=== PATIENT | male | born 1950 | race Caucasian/White ===

== ENCOUNTER 2018-11-15 01:03 | Inpatient (IN) | payer OTHER, BC ==
--- NOTE | 2018-11-15 01:25 | PDOC ---
History of Present Illness - General Stated Complaint: HIGH BP Time Seen by Provider: 11/15/18 01:22 - History of Present Illness Initial Comments: 11/15/18 01:28 68 year old woman with a past medical history of HTN, GERD, DM and HLD who presents with elevated blood pressure to the 150s-180s/90s since 1530 today that did not resolve with hydralazine, carvidilol and benicar and associated with some nonradiating chest "heaviness" and numbness and tingling at the fingertips. The patient denies headache, nausea, changes in vision or hearing. Patient has a history of chronic sinusitis and notes a recent flare up, but denies any other recent illness, no recent travel. Denies shortness of breath, abdominal pain, n/v/d/c dysuria or hematuria. He has no other complaints at bedside. The patient took hydralazine at 1530, benicar at 1630, carvidilol at 1900. The patient takes benicar and carvedilol but does not regularly take hydralazine as it was initially added by PCP due to elevation but caused hypotension , so was discontinued. The patient took the medication today bc his blood pressure was elevated. Patient cannot provide a baseline blood pressure as it is so fluctuant, however he notes that his bp is typically below 150s systolic. He has no other complaitns at bedside. Past History - Past Medical History Allergies/Adverse Reactions: Allergies Allergy/AdvReac Type Severity Reaction Status Date / Time No Known Drug Allergies Allergy Verified 11/15/18 01:30 KIWI FRUIT Allergy Intermediate Rash Uncoded 07/30/13 19:04 Home Medications: Ambulatory Orders Olmesartan Medoxomil [Benicar] 40 mg PO DAILY 06/22/12 Omeprazole/Sodium Bicarbonate [Zegerid 20mg (RX)] 40 mg PO DAILY 07/20/12 Alprazolam [Xanax] 0.5 mg PO HS 07/29/12 Glipizide [Glipizide ER] 5 mg PO DAILY 09/29/12 Atorvastatin Ca [Lipitor] 20 mg PO DAILY 11/23/12 Carvedilol Phosphate [Coreg Cr] 40 mg PO HS 07/25/13 Cholecalciferol (Vitamin D3) [Vitamin D3 -] 1,000 unit PO WEEKLY 07/25/13 hydrALAZINE HCL [Apresoline -] 25 mg PO TID 07/25/13 Anemia: No Asthma: No Cancer: No Cardiac Disorders: No CVA: No COPD: No CHF: No Dementia: No Diabetes: Yes GI Disorders: Yes (gerd) Disorders: Yes (RENAL STONES) HTN: Yes Hypercholesterolemia: Yes Liver Disease: No Seizures: No Thyroid Disease: No - Surgical History Abdominal Surgery: Yes (UMBILICAL HERNIA REPAIR) Appendectomy: No Cardiac Surgery: No Cholecystectomy: No Lung Surgery: No Neurologic Surgery: No Orthopedic Surgery: No - Suicide/Smoking/Psychosocial Hx Smoking Status: No Smoking History: Never smoked Have you smoked in the past 12 months: No Number of Cigarettes Smoked Daily: 0 Hx Alcohol Use: No Drug/Substance Use Hx: No Substance Use Type: None Hx Substance Use Treatment: No *Physical Exam - Physical Exam Comments: 11/15/18 01:55 GENERAL: Awake, alert, and fully oriented, in no acute distress HEAD: No signs of trauma, normocephalic, atraumatic EYES: PERRLA, EOMI, sclera anicteric, conjunctiva clear ENT: oropharynx clear without exudates. Moist mucosa NECK: Normal ROM, supple LUNGS: No distress, speaks full sentences, clear to auscultation bilaterally HEART: Regular rate and rhythm, normal S1 and S2, no murmurs, rubs or gallops, peripheral pulses normal and equal bilaterally. ABDOMEN: Soft, nontender, normoactive bowel sounds. No guarding, no rebound. No masses EXTREMITIES : Normal inspection, Normal range of motion, no edema. No clubbing or cyanosis. NEUROLOGICAL: Cranial nerves II through XII grossly intact. Normal speech, no focal sensorimotor deficits SKIN: Warm, Dry, normal turgor, no rashes or lesions noted ED Treatment Course - LABORATORY CBC & Chemistry Diagram: 11/15/18 01:55 11/15/18 01:55 Medical Decision Making - Medical Decision Making 11/15/18 01:54 68 year old woman with a past medical history of HTN, GERD, DM and HLD who presents with elevated blood pressure to the 150s-180s/90s since 1529 today that did not resolve with hydralazine, carvidilol and benicar and associated with some nonradiating chest "heaviness" and numbness and tingling at the fingertips. ED Course: consider acs vs arrythmia r/o infectious causes pna vs uti cbc, cmp, cardiac profile, ekg, cxr 11/15/18 03:15 EKG: normal sinus rhythm HR 66, PACs, RBBB, narrow QRS, ST and T wave segments and morphology normal. cbc, cmp: wnl trop elevated heparin started will admit for hypertensive urgency repeat troponin in 3 hours 11/15/18 04:45 repeat BP at 199 systolic will dose metoprolol 5 IV and 50 po pending admission *DC/Admit/Observation/Transfer Diagnosis at time of Disposition: Hypertensive urgency - Discharge Dispostion Condition at time of disposition: Fair Decision to Admit order: Yes - Referrals Referrals: Kingsley Brady MD [Primary Care Provider] - - Patient Instructions - Post Discharge Activity
[2018-11-15 01:30] VITALS: BMI 26.9
[2018-11-15 02:08] LABS: EOS % 2.6 % (0-4.5); HEMOGLOBIN 15.9 GM/dL (11.7-16.9); LYMPH % 32.3 % (8-40); MCH 32.4 pg (25.7-33.7); MCHC 35.4 g/dl (32.0-35.9); MEAN CELL VOLUME 91.6 fl (80-96); MEAN PLT VOLUME 9.2 fl (7.5-11.1); MONO % 9.7 % (3.8-10.2); NEUT % 54.4 % (42.8-82.8); PLATELET COUNT 191 K/MM3 (134-434); RBC 4.91 M/mm3 (4.00-5.60); RDW 12.9 % (11.9-15.9); WHITE BLOOD COUNT 7.8 K/mm3 (4.0-10.0)
[2018-11-15] MEDS ORDERED: VALSARTAN 80 MG TABLET (UD) PO ONE (02:11)
--- NOTE | 2018-11-15 02:26 | PDOC ---
Attending Attestation - Resident Resident Name: Henny Albarran - ED Attending Attestation I have performed the following: I have examined & evaluated the patient, The case was reviewed & discussed with the resident, I agree w/resident's findings & plan - HPI HPI: 11/15/18 02:45 Pt comes with HTN and chest heaviness since 3 PM. Pt has been using saline nasal meds and he has been drinking/swallowing the saline mixture. Likely causing the HTN. - Physicial Exam PE: 11/15/18 02:46 Agree with resident exam. - Medical Decision Making 11/15/18 02:46 labs pending. Pt will be given a dose of diovan. He will be discharged. Heart Score/ECG Review - ECG Intrepretation Rhythm: Regular Rhythm - [place]: Right [place] Deviation - P and NV Delta Wave(s) Present: No WPW: No - QRS Widened: RBBB Poor R Wave Progression: No Q Wave Present: No - ST and T Early Repolarization: No Non Specific ST-T Wave changes: No Flattened T Waves: No Prolonged Q-T Interval: No - ECG Impressions Normal ECG: Yes Non-specific ST Elevation: No Ischemic Changes: No
[2018-11-15] MEDS ORDERED: VALSARTAN 80 MG TABLET (UD) ONE (02:32)
[2018-11-15 02:45] LABS: ALBUMIN 3.3 g/dl (3.4-5.0); ALK PHOS 71 U/L (45-117); ANION GAP 5 MMOL/L (8-16); BILIRUBIN,TOTAL 0.3 mg/dL (0.2-1); BLOOD UREA NITROGEN 12 mg/dL (7-18); CALCIUM 8.6 mg/dL (8.5-10.1); CHLORIDE 107 mmol/L (98-107); CO2 30 mmol/L (21-32); CREATININE 1.1 mg/dL (0.55-1.3); GLUCOSE,RANDOM 99 mg/dL (74-106); POTASSIUM 4.3 mmol/L (3.5-5.1); SGOT/AST 27 U/L (15-37); SGPT/ALT 32 U/L (13-61); SODIUM 142 mmol/L (136-145); TOT PROT 6.8 g/dl (6.4-8.2)
[2018-11-15] MEDS ORDERED: HEPARIN NA (PORCINE) 5,000 UNITS/ML 1ML VIAL IVPUSH PRN ×2 (03:05)
[2018-11-15] MEDS ORDERED: ASPIRIN 81 MG CHEWABLE TABLETS PO ONE (03:06)
[2018-11-15] MEDS ORDERED: HEPARIN - 25,000 UNIT in SODIUM CHLORIDE 495 ML IV SCH (03:15)
[2018-11-15] MEDS ORDERED: HEPARIN INFUSION - 25,000 UNITS/500 ML INFUS.BAG IVPB ONE (03:22)
[2018-11-15] MEDS ORDERED: ASPIRIN COATED 81 MG TABLET.EC ONE (03:22)
[2018-11-15 03:28] LABS: URINE APPEARANCE CLEAR; URINE BILIRUBIN NEGATIVE (<2.0 mg/dL); URINE COLOR STRAW; URINE GLUCOSE (UA) NEGATIVE (NEGATIVE); URINE KETONE NEGATIVE (NEGATIVE); URINE LEUK ESTERASE NEGATIVE (NEGATIVE); URINE NITRITE NEGATIVE (NEGATIVE); URINE PROTEIN NEGATIVE (NEGATIVE); URINE UROBILINOGEN NEGATIVE mg/dL (0.2-1.0)
[2018-11-15 04:00] LABS: PROTHROMBIN TIME (PATIENT) 11.8 SEC (9.7-13.0)
[2018-11-15 04:02] LABS: ACTIVATED PTT 30.2 SECONDS (25.2-36.5)
[2018-11-15] MEDS ORDERED: METOPROLOL TARTRATE 50 MG TABLET (FP) PO ONE (04:45)
[2018-11-15] MEDS ORDERED: METOPROLOL TARTRATE 5 MG/5 ML VIAL IVPUSH ONE (04:45)
[2018-11-15] MEDS ORDERED: METOPROLOL TARTRATE 50 MG TABLET (FP) ONE (04:56)
[2018-11-15] MEDS ORDERED: METOPROLOL TARTRATE 5 MG/5 ML VIAL ONE (04:56)
--- NOTE | 2018-11-15 06:29 | HP ---
Admitting History and Physical - Primary Care Physician PCP: Toby Wynn - Admission Chief Complaint: Chest Heaviness, Elevated BP History of Present Illness: This is a 68 y/o man with a PMHx of: HTN, DM, GERD. Who presents to the ED with non-radiating chest heaviness and elevated BP since yesterday afternoon while at rest. Patient reports numbness and tingling to both hands. Patient denies SOB, palpitations. Patient denies fever, chills, cough, dizziness, PATEL, AP, N/V/D , dysuria. Patient reports taking his antihypertensive meds daily. Denies NSAID use. History Source: Patient Limitations to Obtaining History: No Limitations - Past Medical History Cardiovascular: Yes: HTN Gastrointestinal: Yes: GERD Endocrine: Yes: Diabetes Mellitus - Past Surgical History Past Surgical History: Yes: None - Smoking History Smoking history: Never smoked Have you smoked in the past 12 months: No Aproximately how many cigarettes per day: 0 - Alcohol/Substance Use Hx Alcohol Use: No History of Substance Use: reports: None - Social History Usual Living Arrangement: Yes: With Spouse ADL: Independent History of Recent Travel: No Home Medications - Allergies Allergies/Adverse Reactions: Allergies Allergy/AdvReac Type Severity Reaction Status Date / Time No Known Drug Allergies Allergy Verified 11/15/18 01:30 KIWI FRUIT Allergy Intermediate Rash Uncoded 07/30/13 19:04 - Home Medications Home Medications: Ambulatory Orders Alprazolam 1 mg PO HS 11/15/18 Atorvastatin Ca [Lipitor] 10 mg PO HS 11/15/18 Carvedilol [Coreg -] 25 mg PO BID 11/15/18 Glipizide [Glipizide ER] 5 mg PO BID 11/15/18 Hydralazine HCl 25 mg PO BID 11/15/18 Metformin HCl [Glucophage] 500 mg PO HS 11/15/18 Olmesartan Medoxomil [Benicar] 20 mg PO DAILY 11/15/18 Omeprazole 20 mg PO DAILY 11/15/18 Review of Systems - Review of Systems Constitutional: reports: No Symptoms Eyes: reports: No Symptoms HENT: reports: No Symptoms Neck: reports: No Symptoms Cardiovascular: reports: Chest Pain Respiratory: reports: No Symptoms Gastrointestinal: reports: No Symptoms Genitourinary: reports: No Symptoms Breasts: reports: No Symptoms Reported Musculoskeletal: reports: No Symptoms Integumentary: reports: No Symptoms Neurological: reports: Numbness Endocrine: reports: No Symptoms Hematology/Lymphatic: reports: No Symptoms Psychiatric: reports: No Symptoms Physical Examination Vital Signs: Vital Signs Temperature 97.5 F L 11/15/18 01:27 Pulse Rate 61 11/15/18 03:02 Respiratory Rate 18 11/15/18 03:02 Blood Pressure 199/110 H 11/15/18 05:10 O2 Sat by Pulse Oximetry (%) 98 11/15/18 03:02 Constitutional: Yes: Well Nourished, No Distress, Calm Eyes: Yes: WNL, Conjunctiva Clear, EOM Intact, PERRL HENT: Yes: WNL, Atraumatic, Normocephalic Neck: Yes: WNL, Supple, Trachea Midline Cardiovascular: Yes: WNL, Regular Rate and Rhythm, S1, S2 Respiratory: Yes: WNL, Regular, CTA Bilaterally Gastrointestinal: Yes: WNL, Normal Bowel Sounds, Soft Renal/: Yes: WNL Breast(s): Yes: WNL Musculoskeletal: Yes: WNL Extremities: Yes: WNL Edema: No Peripheral Pulses WNL: Yes Neurological: Yes: Alert, Oriented, Cran Nerves II-XII Intact, Numbness (both hands), Tingling (both hands) ...Motor Strength: WNL Psychiatric: Yes: WNL, Alert, Oriented Labs: CBC, BMP 11/15/18 01:55 11/15/18 01:55 Imaging - Results Chest X-ray: Image Reviewed EKG: Image Reviewed Problem List - Problems (1) NSTEMI (non-ST elevated myocardial infarction) Assessment/Plan: Continue cardiac monitoring Serial Enzymes Chest Xray image reviewed- no infiltrate or effusion appreciated Metoprolol, Asa given in ED Heparin Drip initiated in the ED Appreciate Cardiology Consult Echo in am Continue Asa, BB Code(s): I21.4 - NON-ST ELEVATION (NSTEMI) MYOCARDIAL INFARCTION (2) Hypertensive urgency Assessment/Plan: Cardiac monitoring Metoprolol, Hydralazine given in ED Continue home meds Cardiology consult Renal US Code(s): I16.0 - HYPERTENSIVE URGENCY (3) Elevated troponin Assessment/Plan: Will treat for NSTEMI BB, Asa, Heparin Drip initiated in ED Continue cardiac monitoring Serial Enzymes Appreciate Cardiology consult Code(s): R74.8 - ABNORMAL LEVELS OF OTHER SERUM ENZYMES (4) Diabetes mellitus Assessment/Plan: Stable BGMs ISS Hold Metformin, Glipizide for now Monitor renal function Code(s): E11.9 - TYPE 2 DIABETES MELLITUS WITHOUT COMPLICATIONS Qualifiers: Diabetes mellitus type: type 2 (5) GERD (gastroesophageal reflux disease) Assessment/Plan: stable Continue omeprazole Code(s): K21.9 - GASTRO-ESOPHAGEAL REFLUX DISEASE WITHOUT ESOPHAGITIS Assessment/Plan This is a 68 y/o man with a PMHx of HTN, DM, GERD. Admitted to Telemetry for NSTEMI, Hypertensive Urgency for further evaluation of their emergent condition. Plan: See Problem List FEN PO Fluids as tolerated Replete lyes as indicated Low Na, Diabetic Diet DVT ppx OOB SCDs Continue Heparin Drip Code Status: Full Code Dispo: Requires Inpatient Care Visit type - Emergency Visit Emergency Visit: Yes ED Registration Date: 11/15/18 Care time: The patient presented to the Emergency Department on the above date and was hospitalized for further evaluation of their emergent condition. - New Patient This patient is new to me today: Yes Date on this admission: 11/15/18 - Critical Care Critical Care patient: No
--- NOTE | 2018-11-15 09:50 | EKG ---
Test Reason : Blood Pressure : / mmHG Vent. Rate : 066 BPM Atrial Rate : 066 BPM P-R Int : 176 ms QRS Dur : 132 ms QT Int : 414 ms P-R-T Axes : 049 001 010 degrees QTc Int : 434 ms SINUS RHYTHM WITH PREMATURE ATRIAL COMPLEXES RIGHT BUNDLE BRANCH BLOCK ABNORMAL ECG WHEN COMPARED WITH ECG OF 30-JUL-2013 19:24, PREMATURE ATRIAL COMPLEXES ARE NOW PRESENT RIGHT BUNDLE BRANCH BLOCK IS NOW PRESENT Confirmed by GIUSEPPE SALAZAR, MARINO ([id number]) on 11/15/2018 9:50:20 AM Referred By: Confirmed By:MARINO CHIN MD
--- NOTE | 2018-11-15 11:02 | CON.CARD ---
Consult Consult Specialty:: Cardiology Referred by:: Kingsley Brady MD Reason for Consultation:: Chest pressure, HTN urgency - History of Present Illness Chief Complaint: Chest pressure, HTN urgency History of Present Illness: This is a 68 y/o man with a PMHx of: labile HTN heart disease, DM, hyperlipiemia , CKD, GERD, diastolic dysfunction last seen in office 11/05/2018 who presented to the ED with non-radiating chest heaviness and elevated BP since yesterday afternoon while at rest associated with headache and light-headedness. Patient denies SOB, palpitations, true syncope, orthopnea, PND or LE edema. Patient reports taking his antihypertensive meds daily, occasionally adds salt to diet, denies NSAID use. - History Source History Provided By: Patient Limitations to Obtaining History: No Limitations - Past Medical History Cardio/Vascular: Yes: HTN Gastrointestinal: Yes: GERD Endocrine: Yes: Diabetes Mellitus - Past Surgical History Past Surgical History: Yes: None - Alcohol/Substance Use Hx Alcohol Use: No History of Substance Use: reports: None - Smoking History Smoking history: Never smoked Have you smoked in the past 12 months: No Aproximately how many cigarettes per day: 0 - Social History ADL: Independent Home Medications - Allergies Allergies/Adverse Reactions: Allergies Allergy/AdvReac Type Severity Reaction Status Date / Time No Known Drug Allergies Allergy Verified 11/15/18 01:30 KIWI FRUIT Allergy Intermediate Rash Uncoded 07/30/13 19:04 - Home Medications Home Medications: Ambulatory Orders Olmesartan Medoxomil [Benicar] 40 mg PO DAILY 06/22/12 Omeprazole/Sodium Bicarbonate [Zegerid 20mg (RX)] 40 mg PO DAILY 07/20/12 Alprazolam [Xanax] 0.5 mg PO HS 07/29/12 Glipizide [Glipizide ER] 5 mg PO DAILY 09/29/12 Atorvastatin Ca [Lipitor] 20 mg PO DAILY 11/23/12 Carvedilol Phosphate [Coreg Cr] 40 mg PO HS 07/25/13 Cholecalciferol (Vitamin D3) [Vitamin D3 -] 1,000 unit PO WEEKLY 07/25/13 hydrALAZINE HCL [Apresoline -] 25 mg PO TID 07/25/13 Review of Systems - Review of Systems Cardiovascular: reports: Chest Pain Neurological: reports: Dizziness, Headache Vital Signs: Vital Signs Temperature 97.5 F L 11/15/18 01:27 Pulse Rate 61 11/15/18 03:02 Respiratory Rate 18 11/15/18 03:02 Blood Pressure 162/110 H 11/15/18 06:43 O2 Sat by Pulse Oximetry (%) 98 11/15/18 03:02 Constitutional: Yes: No Distress, Calm Neck: Yes: Supple Respiratory: Yes: Regular, CTA Bilaterally Gastrointestinal: Yes: Normal Bowel Sounds, Soft Cardiovascular: Yes: Regular Rate and Rhythm JVD: No Carotid Bruit: No Heart Sounds: Yes: S1, S2 Edema: No - Other Data Labs, Other Data: CBC, BMP 11/15/18 01:55 11/15/18 01:55 INR, PTT INR 1.00 (0.83-1.09) 11/15/18 03:36 Troponin, BNP 11/15/18 11/15/18 01:55 06:19 Troponin I 0.06 H 0.07 H Troponin, BNP 11/15/18 11/15/18 01:55 06:19 Troponin I 0.06 H 0.07 H SR @ 66 PAC RBBB Ejection Fraction %: LVEF > or = 40 % Imaging - Results Chest X-ray: Report Reviewed (NAD) Problem List - Problems (1) Hyperlipidemia associated with type 2 diabetes mellitus Code(s): E11.69 - TYPE 2 DIABETES MELLITUS WITH OTHER SPECIFIED COMPLICATION; E78.5 - HYPERLIPIDEMIA, UNSPECIFIED (2) Demand ischemia Code(s): I24.8 - OTHER FORMS OF ACUTE ISCHEMIC HEART DISEASE (3) Diastolic dysfunction Code(s): I51.9 - HEART DISEASE, UNSPECIFIED (4) Diabetes mellitus Code(s): E11.9 - TYPE 2 DIABETES MELLITUS WITHOUT COMPLICATIONS Qualifiers: Diabetes mellitus type: type 2 (5) Hypertensive urgency Code(s): I16.0 - HYPERTENSIVE URGENCY Assessment/Plan Echo: February 24, 2017 Normal LV and RV size and fxn LVEF 65-70%, mild MR, TR Lexiscan Myoview: No ischemia LVEF 65% 1. Hypertensive urgency with h/o labile HTN 2. Demand ischemia 3. Type 2 DM 4. Hyperlipidemia 5. Diastolic dysfunction P:1. Trend trops to document peak 2. Continue ASA 81 qd, increase carvedilol 25 bid, Benicar 20 qd, Lipitor 20 qd , may add Norvasc 5 qd with uptitration as tolerated 3. D/c heparin gtt as trops peak 4. F/u echo already ordered, check TSH, Ha1c 5. Thank you for consultative opportunity, emphasized importance of medication and diet compliance
--- NOTE | 2018-11-15 11:03 | PN ---
Progress Note, Physician Chief Complaint: patient came in for chest tightness sand tingling and numbness of both hands and dizziness when walking he was noted BP 200/117 and he was given hydrazline a25mg at home and still BP was high so came to ER metoprolol and diovan was given in ER and heparin drip started for inc troponin with aspirin - Current Medication List Current Medications: Active Medications Aspirin (Asa -) 81 mg PO DAILY [facility] Heparin Sodium (Porcine) (Heparin -) 1,000 unit IVPUSH PRN PRN PRN Reason: Heparin Heparin Sodium (Porcine) (Heparin -) 5,000 unit IVPUSH PRN PRN PRN Reason: Heparin Hydralazine HCl (Apresoline -) 25 mg PO TID [facility] Heparin Sodium (Porcine) 25, (000 unit/ Sodium Chloride) 500 mls @ 20 mls/hr IV TITR [facility]; Protocol Last Admin: 11/15/18 03:30 Dose: 1,000 unit/hr, 20 mls/hr - Objective Vital Signs: Vital Signs Temperature 97.5 F L 11/15/18 01:27 Pulse Rate 61 11/15/18 03:02 Respiratory Rate 18 11/15/18 03:02 Blood Pressure 162/110 H 11/15/18 06:43 O2 Sat by Pulse Oximetry (%) 98 11/15/18 03:02 currently in ER complaining of slight chest tightness no more tingling or numbness of fingers Constitutional: Yes: Calm Cardiovascular: Yes: Regular Rate and Rhythm, S1, S2 Respiratory: Yes: CTA Bilaterally Gastrointestinal: Yes: Normal Bowel Sounds, Soft Edema: No Neurological: Yes: Alert, Oriented Labs: CBC, BMP 11/15/18 01:55 11/15/18 01:55 INR, PTT INR 1.00 (0.83-1.09) 11/15/18 03:36 Problem List - Problems (1) NSTEMI (non-ST elevated myocardial infarction) Assessment/Plan: same as above Code(s): I21.4 - NON-ST ELEVATION (NSTEMI) MYOCARDIAL INFARCTION (2) Diabetes mellitus Assessment/Plan: bgm sliding scale hold metformin and glipizide for now check hgba1c Code(s): E11.9 - TYPE 2 DIABETES MELLITUS WITHOUT COMPLICATIONS Qualifiers: Diabetes mellitus type: type 2 (3) Elevated troponin Assessment/Plan: trend troponin echo tele heparin drip asa statin bb cardiology eval Code(s): R74.8 - ABNORMAL LEVELS OF OTHER SERUM ENZYMES
[2018-11-15] MEDS: INSULIN SLIDING SCALE (NOVOLOG) 1 VIAL SQ SCH ×3 (12:42→22:26)
[2018-11-15] MEDS ORDERED: HEPARIN NA (PORCINE) 5,000 UNITS/ML 1ML VIAL ONE (12:59)
[2018-11-15] MEDS ORDERED: hydrALAZINE HCL 25 MG TABLET (FP) PO SCH (14:00)
--- NOTE | 2018-11-15 14:06 | ECHO ---
Name: YANET HOLT Exam:Adult Echocardiogram Study Date: 11/15/2018 07:55 AM Age: 68 yrs Reason For Study: NSTEMI Height: 74 in Weight: 210 lb BSA: 2.2 m2 MMode/2D Measurements & Calculations IVSd: 1.4 cm Ao root diam: 3.3 cm LVIDd: 4.3 cm LA dimension: 2.5 cm LVIDs: 2.6 cm LVPWd: 1.1 cm EDV(Teich): 84.6 ml ESV(Teich): 25.0 ml Doppler Measurements & Calculations MV E max gianni: 80.5 cm/sec Med Peak E' Gianni: 6.4 cm/sec MV A max gianni: 77.6 cm/sec Med E/e': 12.5 MV E/A: 1.0 Lat Peak E' Gianni: 10.2 cm/sec MV dec time: 0.11 sec Lat E/e': 7.9 PI Vmax: 62.4 cm/sec Procedure A complete two-dimensional transthoracic echocardiogram was performed (2D, M-mode, Doppler and color flow Doppler). Technically limited study. Left Ventricle The left ventricle is normal in size. There is moderate concentric left ventricular hypertrophy. Left ventricular systolic function is normal. Ejection Fraction = 60-65%. No regional wall motion abnormal ities noted. Right Ventricle The right ventricle is not well visualized. Atria The left atrial size is normal. Right atrial size is normal. Mitral Valve The mitral valve is normal in structure and function. There is no mitral regurgitation noted. Tricuspid Valve The tricuspid valve is normal in structure and function. No tricuspid regurgitation. Aortic Valve The aortic valve is normal in structure and function. Trace aortic regurgitation. Pulmonic Valve The pulmonic valve is not well visualized. Great Vessels The aortic root is normal size. Pericardium/Pleura There is no pericardial effusion. Interpretation Summary Technically limited study The left ventricle is normal in size. There is moderate concentric left ventricular hypertrophy. Left ventricular systolic function is normal. No regional wall motion abnormalities noted. Ejection Fraction = 60-65%. The right ventricle is not well visualized. The left atrial size is normal. Right atrial size is normal. Trace aortic regurgitation. There is no pericardial effusion. Previous study is not available for comparison Roscoe Segovia MD 11/15/2018 02:06 PM
[2018-11-15] MEDS: ACETAMINOPHEN 325 MG TABLET (FP) PO PRN (22:28)
[2018-11-15] MEDS: ALPRAZolam 2 MG TABLET PO PRN (22:28)
[2018-11-15] MEDS: ATORVASTATIN CA 20 MG TABLET (FP) PO SCH (22:28)
[2018-11-15] MEDS: CARVEDILOL 25 MG TABLET (FP) PO SCH (22:28)
[2018-11-16] MEDS: INSULIN SLIDING SCALE (NOVOLOG) 1 VIAL SQ SCH ×4 (06:42→21:46)
[2018-11-16 06:46] LABS: BASO % 0.5 % (0-2.0); EOS % 2.1 % (0-4.5); HEMATOCRIT 39.2 % (35.4-49); HEMOGLOBIN 13.9 GM/dL (11.7-16.9); LYMPH % 30.8 % (8-40); MCHC 35.4 g/dl (32.0-35.9); MEAN CELL VOLUME 90.5 fl (80-96); MEAN PLT VOLUME 9.6 fl (7.5-11.1); MONO % 8.4 % (3.8-10.2); NEUT % 58.2 % (42.8-82.8); PLATELET COUNT 167 K/MM3 (134-434); RBC 4.34 M/mm3 (4.00-5.60); RDW 12.7 % (11.9-15.9); WHITE BLOOD COUNT 7.1 K/mm3 (4.0-10.0)
[2018-11-16 06:55] LABS: INR 1.12 (0.83-1.09); PROTHROMBIN TIME (PATIENT) 13.2 SEC (9.7-13.0)
[2018-11-16 07:29] LABS: ALBUMIN 2.7 g/dl (3.4-5.0); ALK PHOS 59 U/L (45-117); ANION GAP 7 MMOL/L (8-16); BILIRUBIN,TOTAL 0.6 mg/dL (0.2-1); BLOOD UREA NITROGEN 16 mg/dL (7-18); CHLORIDE 109 mmol/L (98-107); CO2 26 mmol/L (21-32); CREATININE 0.9 mg/dL (0.55-1.3); GLUCOSE,RANDOM 127 mg/dL (74-106); POTASSIUM 3.8 mmol/L (3.5-5.1); SGOT/AST 17 U/L (15-37); SGPT/ALT 25 U/L (13-61); SODIUM 142 mmol/L (136-145); TOT PROT 5.4 g/dl (6.4-8.2)
--- NOTE | 2018-11-16 08:29 | PN ---
Progress Note, Physician - Current Medication List Current Medications: Active Medications Acetaminophen (Tylenol -) 650 mg PO Q6H PRN PRN Reason: PAIN OR FEVER Last Admin: 11/15/18 22:28 Dose: 650 mg Alprazolam (Xanax -) 1 mg PO HS PRN PRN Reason: ANXIETY Last Admin: 11/15/18 22:28 Dose: 1 mg Amlodipine Besylate (Norvasc -) 5 mg PO DAILY [facility] Aspirin (Asa -) 81 mg PO DAILY [facility] Atorvastatin Calcium (Lipitor -) 20 mg PO HS [facility] Last Admin: 11/15/18 22:28 Dose: 20 mg Carvedilol (Coreg -) 25 mg PO BID [facility] Last Admin: 11/15/18 22:28 Dose: 25 mg Insulin Aspart (Novolog Vial Sliding Scale -) 1 vial SQ ACHS [facility]; Protocol Last Admin: 11/16/18 06:42 Dose: Not Given Valsartan (Diovan -) 80 mg PO DAILY [facility] - Objective Vital Signs: Vital Signs Temperature 98.1 F 11/16/18 06:00 Pulse Rate 69 11/16/18 06:00 Respiratory Rate 20 11/16/18 06:00 Blood Pressure 145/84 11/16/18 06:00 O2 Sat by Pulse Oximetry (%) 97 11/16/18 05:00 Cardiovascular: Yes: S1, S2 Respiratory: Yes: Regular, CTA Bilaterally Gastrointestinal: Yes: Normal Bowel Sounds, Soft Labs: CBC, BMP 11/16/18 05:30 11/16/18 05:30 INR, PTT INR 1.12 (0.83-1.09) H 11/16/18 05:30 Problem List - Problems (1) NSTEMI (non-ST elevated myocardial infarction) Assessment/Plan: trend troponin Laboratory Tests 11/15/18 14:30 Troponin I 0.07 H echo noted tele off heparin drip asa statin bb cardiology eval Code(s): I21.4 - NON-ST ELEVATION (NSTEMI) MYOCARDIAL INFARCTION (2) Diabetes mellitus Assessment/Plan: bgm sliding scale hold metformin and glipizide for now check hgba1c Code(s): E11.9 - TYPE 2 DIABETES MELLITUS WITHOUT COMPLICATIONS Qualifiers: Diabetes mellitus type: type 2
[2018-11-16] MEDS: CARVEDILOL 25 MG TABLET (FP) PO SCH ×2 (09:47→21:00)
[2018-11-16] MEDS: VALSARTAN 80 MG TABLET (UD) PO SCH (09:47)
[2018-11-16] MEDS: ASPIRIN 81 MG CHEWABLE TABLETS PO SCH (09:47)
[2018-11-16] MEDS ORDERED: amLODIPine BESYLATE 5 MG TABLET (FP) PO SCH (10:00)
[2018-11-16] MEDS ORDERED: CARVEDILOL PHOSPHATE CR 40 MG CAPSULE (FP) PO SCH (10:00)
--- NOTE | 2018-11-16 11:18 | PN ---
Progress Note, Physician Chief Complaint: Events noted Not in distress History of Present Illness: Patient was seen and examined. Awake and alert. Chart was reviewed Denies chest pain, SOB or palpitations Intermittent dizziness - Current Medication List Current Medications: Active Medications Acetaminophen (Tylenol -) 650 mg PO Q6H PRN PRN Reason: PAIN OR FEVER Last Admin: 11/15/18 22:28 Dose: 650 mg Alprazolam (Xanax -) 1 mg PO HS PRN PRN Reason: ANXIETY Last Admin: 11/15/18 22:28 Dose: 1 mg Amlodipine Besylate (Norvasc -) 5 mg PO DAILY [facility] Last Admin: 11/16/18 09:47 Dose: 5 mg Aspirin (Asa -) 81 mg PO DAILY [facility] Last Admin: 11/16/18 09:47 Dose: 81 mg Atorvastatin Calcium (Lipitor -) 20 mg PO HS [facility] Last Admin: 11/15/18 22:28 Dose: 20 mg Carvedilol (Coreg -) 25 mg PO BID [facility] Last Admin: 11/16/18 09:47 Dose: 25 mg Insulin Aspart (Novolog Vial Sliding Scale -) 1 vial SQ [facility]; Protocol Last Admin: 11/16/18 06:42 Dose: Not Given Valsartan (Diovan -) 80 mg PO DAILY [facility] Last Admin: 11/16/18 09:47 Dose: 80 mg - Objective Vital Signs: Vital Signs Temperature 98.1 F 11/16/18 06:00 Pulse Rate 76 11/16/18 09:07 Respiratory Rate 18 11/16/18 09:07 Blood Pressure 143/80 11/16/18 09:07 O2 Sat by Pulse Oximetry (%) 97 11/16/18 08:37 Eyes: Yes: PERRL HENT: Yes: Atraumatic Neck: Yes: Supple Cardiovascular: Yes: Regular Rate and Rhythm, S1, S2 Respiratory: Yes: CTA Bilaterally Gastrointestinal: Yes: Normal Bowel Sounds, Soft. No: Tenderness Edema: No Additional Findings/Remarks: - Review of Systems Constitutional: denies: Chills, Fever Cardiovascular: denies: Chest Pain, Palpitations, Shortness of Breath Respiratory: denies: Cough, Hemoptysis, Orthopnea, PND, SOB, SOB on Exertion Gastrointestinal: denies: Abdominal Pain, Constipation, Diarrhea, Melena, Nausea , Rectal Bleeding, Vomiting Musculoskeletal: denies: Back Pain, Joint Pain Neurological: denies: Weakness. (+) Dizziness, denies: Headache, Seizure, Syncope Labs: CBC, BMP 11/16/18 05:30 11/16/18 05:30 INR, PTT INR 1.12 (0.83-1.09) H 11/16/18 05:30 Problem List - Problems (1) Demand ischemia Code(s): I24.8 - OTHER FORMS OF ACUTE ISCHEMIC HEART DISEASE (2) Diabetes mellitus Code(s): E11.9 - TYPE 2 DIABETES MELLITUS WITHOUT COMPLICATIONS Qualifiers: Diabetes mellitus type: type 2 (3) Diastolic dysfunction Code(s): I51.9 - HEART DISEASE, UNSPECIFIED (4) GERD (gastroesophageal reflux disease) Code(s): K21.9 - GASTRO-ESOPHAGEAL REFLUX DISEASE WITHOUT ESOPHAGITIS (5) Hyperlipidemia associated with type 2 diabetes mellitus Code(s): E11.69 - TYPE 2 DIABETES MELLITUS WITH OTHER SPECIFIED COMPLICATION; E78.5 - HYPERLIPIDEMIA, UNSPECIFIED (6) Hypertensive urgency Code(s): I16.0 - HYPERTENSIVE URGENCY Assessment/Plan 1. HTN - labile 2. Demand ischemia 3. Type 2 DM 4. Hyperlipidemia 5. Diastolic dysfunction PLAN: 1. Trend troponin 2. Continue ASA 81 mg QD, Carvedilol 25 mg BID, Benicar 20 mg QD (on Valsartan 80 mg QD in the hospital), Lipitor 20 mg QHS and increase Norvasc to 10 mg QD 3. Echocardiography reviewed Further plans are to follow Roscoe Segovia MD
[2018-11-16] MEDS: ACETAMINOPHEN 325 MG TABLET (FP) PO PRN (17:07)
[2018-11-16] MEDS: ATORVASTATIN CA 20 MG TABLET (FP) PO SCH (21:56)
[2018-11-16] MEDS: ALPRAZolam 2 MG TABLET PO PRN (21:56)
[2018-11-17] MEDS: INSULIN SLIDING SCALE (NOVOLOG) 1 VIAL SQ SCH ×4 (06:12→21:32)
--- NOTE | 2018-11-17 08:29 | PN ---
Progress Note, Physician - Current Medication List Current Medications: Active Medications Acetaminophen (Tylenol -) 650 mg PO Q6H PRN PRN Reason: PAIN OR FEVER Last Admin: 11/16/18 17:07 Dose: 650 mg Amlodipine Besylate (Norvasc -) 10 mg PO DAILY [facility] Aspirin (Asa -) 81 mg PO DAILY [facility] Last Admin: 11/16/18 09:47 Dose: 81 mg Atorvastatin Calcium (Lipitor -) 20 mg PO HS [facility] Last Admin: 11/16/18 21:56 Dose: 20 mg Carvedilol (Coreg -) 25 mg PO BID [facility] Last Admin: 11/16/18 21:00 Dose: 25 mg Insulin Aspart (Novolog Vial Sliding Scale -) 1 vial SQ [facility]; Protocol Last Admin: 11/17/18 06:12 Dose: Not Given Valsartan (Diovan -) 80 mg PO DAILY [facility] Last Admin: 11/16/18 09:47 Dose: 80 mg - Objective Vital Signs: Vital Signs Temperature 97.5 F L 11/17/18 05:00 Pulse Rate 62 11/17/18 05:00 Respiratory Rate 18 11/17/18 07:52 Blood Pressure 140/78 11/17/18 05:00 O2 Sat by Pulse Oximetry (%) 97 11/17/18 07:52 Cardiovascular: Yes: S1, S2 Respiratory: Yes: Regular, CTA Bilaterally Gastrointestinal: Yes: Normal Bowel Sounds, Soft Labs: CBC, BMP 11/16/18 05:30 11/16/18 05:30 INR, PTT INR 1.12 (0.83-1.09) H 11/16/18 05:30 Problem List - Problems (1) NSTEMI (non-ST elevated myocardial infarction) Assessment/Plan: trend troponin Laboratory Tests 11/15/18 14:30 Troponin I 0.07 H echo noted tele off heparin drip asa statin bb cardiology eval stress test Code(s): I21.4 - NON-ST ELEVATION (NSTEMI) MYOCARDIAL INFARCTION (2) Diabetes mellitus Assessment/Plan: bgm sliding scale hold metformin and glipizide for now check hgba1c Code(s): E11.9 - TYPE 2 DIABETES MELLITUS WITHOUT COMPLICATIONS Qualifiers: Diabetes mellitus type: type 2
--- NOTE | 2018-11-17 09:10 | PN ---
Progress Note, Physician History of Present Illness: No further chest heaviness, headache and light-headedness with improved BP control, awaiting nuclear stress test results. - Current Medication List Current Medications: Active Medications Acetaminophen (Tylenol -) 650 mg PO Q6H PRN PRN Reason: PAIN OR FEVER Last Admin: 11/16/18 17:07 Dose: 650 mg Amlodipine Besylate (Norvasc -) 10 mg PO DAILY [facility] Aspirin (Asa -) 81 mg PO DAILY [facility] Last Admin: 11/16/18 09:47 Dose: 81 mg Atorvastatin Calcium (Lipitor -) 20 mg PO HS [facility] Last Admin: 11/16/18 21:56 Dose: 20 mg Carvedilol (Coreg -) 25 mg PO BID [facility] Last Admin: 11/16/18 21:00 Dose: 25 mg Insulin Aspart (Novolog Vial Sliding Scale -) 1 vial SQ ACHS [facility]; Protocol Last Admin: 11/17/18 06:12 Dose: Not Given Valsartan (Diovan -) 80 mg PO DAILY [facility] Last Admin: 11/16/18 09:47 Dose: 80 mg - Objective Vital Signs: Vital Signs Temperature 97.5 F L 11/17/18 05:00 Pulse Rate 62 11/17/18 05:00 Respiratory Rate 18 11/17/18 07:52 Blood Pressure 140/78 11/17/18 05:00 O2 Sat by Pulse Oximetry (%) 97 11/17/18 07:52 Constitutional: Yes: No Distress, Calm Neck: Yes: Supple Cardiovascular: Yes: Regular Rate and Rhythm Respiratory: Yes: Regular, CTA Bilaterally Gastrointestinal: Yes: Normal Bowel Sounds, Soft Edema: No Labs: CBC, BMP 11/16/18 05:30 11/16/18 05:30 INR, PTT INR 1.12 (0.83-1.09) H 11/16/18 05:30 Problem List - Problems (1) Hyperlipidemia associated with type 2 diabetes mellitus Code(s): E11.69 - TYPE 2 DIABETES MELLITUS WITH OTHER SPECIFIED COMPLICATION; E78.5 - HYPERLIPIDEMIA, UNSPECIFIED (2) Demand ischemia Code(s): I24.8 - OTHER FORMS OF ACUTE ISCHEMIC HEART DISEASE (3) Diastolic dysfunction Code(s): I51.9 - HEART DISEASE, UNSPECIFIED (4) Diabetes mellitus Code(s): E11.9 - TYPE 2 DIABETES MELLITUS WITHOUT COMPLICATIONS Qualifiers: Diabetes mellitus type: type 2 (5) Hypertensive urgency Code(s): I16.0 - HYPERTENSIVE URGENCY Assessment/Plan 11/15/2018 Echo: Normal LV size with mod cLVH and normal LV fxn, LVEF 60-65%, normal atrial sizes, tr [place] Echo: February 24, 2017 Normal LV and RV size and fxn LVEF 65-70%, mild MR, TR Lexiscan Myoview: No ischemia LVEF 65% 1. HTN - labile 2. Demand ischemia 3. Type 2 DM not at goal control 4. Hyperlipidemia 5. Diastolic dysfunction PLAN: 1. Troponins have plateaued 2. Continue ASA 81 mg QD, Carvedilol 25 mg BID, Benicar 20 mg QD (on Valsartan 80 mg QD in the hospital), Lipitor 20 mg QHS and Norvasc to 10 mg QD 3. F/u persantine myoview already ordered 4. Optimize glycemic control
[2018-11-17] MEDS: VALSARTAN 80 MG TABLET (UD) PO SCH ×2 (09:29→09:41)
[2018-11-17] MEDS: ASPIRIN 81 MG CHEWABLE TABLETS PO SCH ×2 (09:29→11:47)
[2018-11-17] MEDS: CARVEDILOL 25 MG TABLET (FP) PO SCH ×3 (09:29→21:33)
[2018-11-17] MEDS: amLODIPine BESYLATE 5 MG TABLET (FP) PO SCH ×2 (09:30→09:41)
--- NOTE | 2018-11-17 09:51 | DS ---
Physical Examination Vital Signs: Vital Signs Temperature 97.5 F L 11/17/18 05:00 Pulse Rate 72 11/17/18 09:00 Respiratory Rate 20 11/17/18 09:00 Blood Pressure 144/106 H 11/17/18 09:00 O2 Sat by Pulse Oximetry (%) 97 11/17/18 07:52 Labs: CBC, BMP 11/16/18 05:30 11/16/18 05:30 Discharge Summary Reason For Visit: HYPERTENSIVE URGENCY Current Active Problems Demand ischemia (Acute) Diabetes mellitus (Acute) Diastolic dysfunction (Acute) Elevated troponin (Acute) GERD (gastroesophageal reflux disease) (Acute) Hyperlipidemia associated with type 2 diabetes mellitus (Acute) Hypertensive urgency (Acute) NSTEMI (non-ST elevated myocardial infarction) (Acute) Condition: Fair - Instructions Referrals: Kingsley Brady MD [Primary Care Provider] - 1 Week - Home Medications Comprehensive Discharge Medication List: Ambulatory Orders Alprazolam 1 mg PO HS 11/15/18 Azelastine/Fluticasone [Dymista Nasal [place]] 23 gm NS 11/15/18 Carvedilol [Coreg -] 25 mg PO BID 11/15/18 Glipizide [Glipizide ER] 5 mg PO BID 11/15/18 Metformin HCl [Glucophage] 500 mg PO HS 11/15/18 Olmesartan Medoxomil [Benicar] 20 mg PO DAILY 11/15/18 Omeprazole 20 mg PO DAILY 11/15/18 Amlodipine Besylate [Norvasc -] 10 mg PO DAILY #30 tablet 11/17/18 Aspirin [ASA -] 81 mg PO DAILY tab.chew 11/17/18 Atorvastatin Ca [Lipitor] 20 mg PO HS #30 tablet 11/17/18
[2018-11-17] MEDS: ATORVASTATIN CA 20 MG TABLET (FP) PO SCH (21:33)
[2018-11-17] MEDS ORDERED: ALPRAZolam 2 MG TABLET PO ONE (21:51)
[2018-11-18] MEDS: INSULIN SLIDING SCALE (NOVOLOG) 1 VIAL SQ SCH ×3 (06:47→16:27)
[2018-11-18] MEDS ORDERED: REGADENOSON 0.4 MG/5 ML PRE-FILLED SYRINGE IVPUSH ONE ×2 (08:45→10:26)
[2018-11-18] MEDS: CARVEDILOL 25 MG TABLET (FP) PO SCH (09:33)
[2018-11-18] MEDS: amLODIPine BESYLATE 5 MG TABLET (FP) PO SCH (09:33)
[2018-11-18] MEDS: VALSARTAN 80 MG TABLET (UD) PO SCH (09:33)
[2018-11-18] MEDS: ASPIRIN 81 MG CHEWABLE TABLETS PO SCH (09:33)
--- NOTE | 2018-11-18 10:56 | PN ---
Progress Note, Physician History of Present Illness: Patient discharged, nuc stress showed no ischemia. - Current Medication List Current Medications: Active Medications Acetaminophen (Tylenol -) 650 mg PO Q6H PRN PRN Reason: PAIN OR FEVER Last Admin: 11/16/18 17:07 Dose: 650 mg Amlodipine Besylate (Norvasc -) 10 mg PO DAILY [facility] Last Admin: 11/18/18 09:33 Dose: 10 mg Aspirin (Asa -) 81 mg PO DAILY [facility] Last Admin: 11/18/18 09:33 Dose: 81 mg Atorvastatin Calcium (Lipitor -) 20 mg PO HS [facility] Last Admin: 11/17/18 21:33 Dose: 20 mg Carvedilol (Coreg -) 25 mg PO BID [facility] Last Admin: 11/18/18 09:33 Dose: 25 mg Insulin Aspart (Novolog Vial Sliding Scale -) 1 vial SQ ACHS [facility]; Protocol Last Admin: 11/18/18 06:47 Dose: Not Given Valsartan (Diovan -) 80 mg PO DAILY [facility] Last Admin: 11/18/18 09:33 Dose: 80 mg - Objective Vital Signs: Vital Signs Temperature 97.5 F L 11/18/18 08:51 Pulse Rate 60 11/18/18 08:51 Respiratory Rate 20 11/18/18 08:51 Blood Pressure 122/74 11/18/18 08:51 O2 Sat by Pulse Oximetry (%) 98 11/18/18 08:50 Labs: CBC, BMP 11/16/18 05:30 11/16/18 05:30 INR, PTT INR 1.12 (0.83-1.09) H 11/16/18 05:30 Problem List - Problems (1) Hyperlipidemia associated with type 2 diabetes mellitus Code(s): E11.69 - TYPE 2 DIABETES MELLITUS WITH OTHER SPECIFIED COMPLICATION; E78.5 - HYPERLIPIDEMIA, UNSPECIFIED (2) Demand ischemia Code(s): I24.8 - OTHER FORMS OF ACUTE ISCHEMIC HEART DISEASE (3) Diastolic dysfunction Code(s): I51.9 - HEART DISEASE, UNSPECIFIED (4) Diabetes mellitus Code(s): E11.9 - TYPE 2 DIABETES MELLITUS WITHOUT COMPLICATIONS Qualifiers: Diabetes mellitus type: type 2 (5) Hypertensive urgency Code(s): I16.0 - HYPERTENSIVE URGENCY Assessment/Plan 11/15/2018 Echo: Normal LV size with mod cLVH and normal LV fxn, LVEF 60-65%, normal atrial sizes, tr [place] Echo: February 24, 2017 Normal LV and RV size and fxn LVEF 65-70%, mild MR, TR Lexiscan Myoview: No ischemia LVEF 65% 1. HTN - labile 2. Demand ischemia 3. Type 2 DM not at goal control 4. Hyperlipidemia 5. Diastolic dysfunction PLAN: 1. Troponins have plateaued 2. Continue ASA 81 mg QD, Carvedilol 25 mg BID, Benicar 20 mg QD (on Valsartan 80 mg QD in the hospital), Lipitor 20 mg QHS and Norvasc to 10 mg QD 3. Persantine myoview showed no ischemia 4. Optimize glycemic control 5. F/u with Dr. Keon Nguyễn in office
--- NOTE | 2018-11-18 15:20 | PN ---
Progress Note, Physician Chief Complaint: patient seen and examined stress test negative no chest pain - Current Medication List Current Medications: Active Medications Acetaminophen (Tylenol -) 650 mg PO Q6H PRN PRN Reason: PAIN OR FEVER Last Admin: 11/16/18 17:07 Dose: 650 mg Amlodipine Besylate (Norvasc -) 10 mg PO DAILY [facility] Last Admin: 11/18/18 09:33 Dose: 10 mg Aspirin (Asa -) 81 mg PO DAILY [facility] Last Admin: 11/18/18 09:33 Dose: 81 mg Atorvastatin Calcium (Lipitor -) 20 mg PO HS [facility] Last Admin: 11/17/18 21:33 Dose: 20 mg Carvedilol (Coreg -) 25 mg PO BID [facility] Last Admin: 11/18/18 09:33 Dose: 25 mg Insulin Aspart (Novolog Vial Sliding Scale -) 1 vial SQ [facility]; Protocol Last Admin: 11/18/18 11:32 Dose: Not Given Valsartan (Diovan -) 80 mg PO DAILY [facility] Last Admin: 11/18/18 09:33 Dose: 80 mg - Objective Vital Signs: Vital Signs Temperature 97.5 F L 11/18/18 08:51 Pulse Rate 60 11/18/18 08:51 Respiratory Rate 20 11/18/18 08:51 Blood Pressure 122/74 11/18/18 08:51 O2 Sat by Pulse Oximetry (%) 98 11/18/18 08:50 Constitutional: Yes: Calm Cardiovascular: Yes: Regular Rate and Rhythm, S1, S2 Respiratory: Yes: CTA Bilaterally Gastrointestinal: Yes: Normal Bowel Sounds, Soft Labs: CBC, BMP 11/16/18 05:30 11/16/18 05:30 INR, PTT INR 1.12 (0.83-1.09) H 11/16/18 05:30 Problem List - Problems (1) NSTEMI (non-ST elevated myocardial infarction) Assessment/Plan: stress test negative continue aspirin coreg and benicar Code(s): I21.4 - NON-ST ELEVATION (NSTEMI) MYOCARDIAL INFARCTION (2) Diabetes mellitus Assessment/Plan: bgm sliding scale hold metformin and glipizide for now- restart at home check hgba1c- 7.9 Code(s): E11.9 - TYPE 2 DIABETES MELLITUS WITHOUT COMPLICATIONS Qualifiers: Diabetes mellitus type: type 2 (3) Elevated troponin Assessment/Plan: s/p stress test Code(s): R74.8 - ABNORMAL LEVELS OF OTHER SERUM ENZYMES
[2018-11-18 16:01] VITALS: BP 114/71; PULSE 71; TEMP 98
== END 2018-11-18 16:45 | disposition home or self-care (01) | DRG 282 ==
LOC: JER 01:03 → JERBED 04:03 → J4W 20:42
PROVIDERS: ADMIT Family Medicine; ATTEND Family Medicine
DX: I21.4 Non-ST elevation (NSTEMI) myocardial infarction (principal); I16.0 Hypertensive urgency; R74.8 Abnormal levels of other serum enzymes; E11.9 Type 2 diabetes mellitus without complications; K21.9 Gastro-esophageal reflux disease without esophagitis; E78.5 Hyperlipidemia, unspecified; I24.8 Other forms of acute ischemic heart disease
CPT/HCPCS: 36415; 71045-TC-FY; 78452-TC; 80053; 80061; 81003; 82550; 82553; 82962; 83036; 83721; 84443; 84484; 85025; 85610; 85730; 93005; 93010; 93017; 93306-TC; 97116-GP; 97161-GP; 99284-25; A9502; J1644; J2785

== ENCOUNTER 2023-07-27 05:37 | Day surgery (SDC) | payer OTHER, BC ==
[2023-07-23 10:14] VITALS: BMI 26.6
[2023-07-27 10:27] LABS: BASO % 0.8 % (0-2.0); EOS % 2.2 % (0-4.5); HEMATOCRIT 48.1 % (35.4-49); HEMOGLOBIN 16.2 GM/dL (11.7-16.9); LYMPH % 30.5 % (8-40); MCH 30.2 pg (25.7-33.7); MCHC 33.8 g/dl (32.0-35.9); MEAN CELL VOLUME 89.5 fl (80-96); MEAN PLT VOLUME 9.2 fl (7.5-11.1); MONO % 9.9 % (3.8-10.2); NEUT % 56.6 % (42.8-82.8); PLATELET COUNT 236 10^3/uL (134-434); RBC 5.38 M/mm3 (4.00-5.60); RDW 13.5 % (11.9-15.9); WHITE BLOOD COUNT 5.7 K/mm3 (4.0-10.0)
[2023-07-27 11:07] LABS: INR 0.99 (0.83-1.09); PROTHROMBIN TIME (PATIENT) 11.5 SEC (9.7-13.0)
[2023-07-27] MEDS ORDERED: FENTANYL CITRATE/PF 50 MCG/ML VIAL ONE (11:26)
[2023-07-27] MEDS ORDERED: MIDAZOLAM HCL 2 MG/2 ML SINGLE DOSE VIAL ONE (11:26)
[2023-07-27] MEDS ORDERED: SODIUM CHLORIDE 500 ML IV ONE (12:00)
[2023-07-27] MEDS ORDERED: MIDAZOLAM HCL 2 MG/2 ML SINGLE DOSE VIAL IVPUSH ONE (12:04)
[2023-07-27] MEDS ORDERED: FENTANYL CITRATE/PF 50 MCG/ML VIAL IVPUSH ONE (12:04)
[2023-07-27 14:40] VITALS: RESP 18
[2023-07-27 15:26] VITALS: PULSE 56
[2023-07-27 16:07] VITALS: BP 117/72; TEMP 98.1
== END 2023-07-27 16:08 | disposition home or self-care (01) ==
LOC: JRADIR 05:37
PROVIDERS: ATTEND Internal Medicine Nephrology
PROC: 0TB13ZX Excision of Left Kidney, Percutaneous Approach, Diagnostic (ICD-10-PCS; principal; 2023-07-27)
DX: N26.9 Renal sclerosis, unspecified (principal)
CPT/HCPCS: 36415; 50200; 76942-TC; 77012-TC; 82962; 85025; 85610; 88300-TC; 88329

== ENCOUNTER 2024-09-19 20:20 | Observation (INO) | payer OTHER, BC ==
[2024-09-19 20:25] VITALS: BMI 24.3
[2024-09-19] MEDS ORDERED: ACETAMINOPHEN INJECTION 100 ML ONE (21:05)
[2024-09-19] MEDS ORDERED: FAMOTIDINE 10 MG/ML VIAL IVPB ONE (21:06)
[2024-09-19 21:27] LABS: BASO % 0.4 % (0-2.0); EOS % 1.3 % (0-4.5); HEMATOCRIT 43.8 % (35.4-49); HEMOGLOBIN 14.3 GM/dL (11.7-16.9); LYMPH % 25.3 % (8-40); MCH 28.4 pg (25.7-33.7); MCHC 32.6 g/dl (32.0-35.9); MEAN CELL VOLUME 87.2 fl (80-96); MEAN PLT VOLUME 8.5 fl (7.5-11.1); MONO % 6.6 % (3.8-10.2); NEUT % 66.4 % (42.8-82.8); PLATELET COUNT 203 10^3/uL (134-434); RBC 5.03 M/mm3 (4.00-5.60); RDW 14.3 % (11.9-15.9); WHITE BLOOD COUNT 8.2 K/mm3 (4.0-10.0)
[2024-09-19] MEDS: ACETAMINOPHEN 1000 MG/100 ML BAG IVPB ONE (21:27)
[2024-09-19] MEDS: FAMOTIDINE 20 MG/50 ML IVPB 20 MG/50 ML MG IVPB ONE (21:27)
[2024-09-19 21:37] LABS: INR 0.99 (0.83-1.09); PROTHROMBIN TIME (PATIENT) 11.2 SEC (9.7-13.0)
[2024-09-19 21:40] LABS: ACTIVATED PTT 27.5 SECONDS (25.2-36.5)
[2024-09-19 22:00] LABS: CHLORIDE 103 mmol/L (98-107); POTASSIUM 3.9 mmol/L (3.5-5.1); SODIUM 139 mmol/L (136-145)
[2024-09-19 22:02] LABS: ALBUMIN 3.4 g/dl (3.4-5.0); ANION GAP 5 mmol/L (4-13); BLOOD UREA NITROGEN 10.2 mg/dL (7-18); CALCIUM 9.4 mg/dL (8.5-10.1); CO2 31 mmol/L (21-32); GLUCOSE,RANDOM 140 mg/dL (74-106); MAGNESIUM 1.8 mg/dL (1.8-2.4)
[2024-09-19 22:05] LABS: CREATININE 1.2 mg/dL (0.55-1.3); SGOT/AST 21 U/L (15-37); SGPT/ALT 9 U/L (13-61)
[2024-09-19 22:06] LABS: BILIRUBIN,TOTAL 0.5 mg/dL (0.2-1); TOT PROT 6.5 g/dl (6.4-8.2)
[2024-09-19 22:08] LABS: ALK PHOS 64 U/L (45-117)
[2024-09-19] MEDS ORDERED: ASPIRIN 81 MG CHEWABLE TABLETS ONE (22:51)
[2024-09-19] MEDS: ASPIRIN 81 MG CHEWABLE TABLETS PO ONE (22:55)
[2024-09-20] MEDS ORDERED: metoPROLOL SUCCINATE 25 MG TAB.SR.24H (FP) PO ONE (03:42)
[2024-09-20] MEDS: TAMSULOSIN HCL 0.4 MG CAP PO ONE (03:57)
[2024-09-20] MEDS ORDERED: metoPROLOL SUCCINATE 25 MG TAB.SR.24H (FP) PO SCH (04:26)
[2024-09-20] MEDS ORDERED: DOCUSATE SODIUM 100 MG CAPSULE (FP) PO PRN (06:54)
[2024-09-20] MEDS ORDERED: ACETAMINOPHEN 325 MG TABLET (FP) PO PRN (06:54)
[2024-09-20] MEDS: INSULIN ASPART SLIDING SCALE (NOVOLOG) 1 VIAL SQ SCH (08:21)
[2024-09-20] MEDS ORDERED: MAG HYDROX/AL HYDROX/SIMETH 30 ML UNIT-DOSE CUP PO PRN (08:33)
[2024-09-20] MEDS ORDERED: LOSARTAN POTASSIUM 50 MG TABLET ONE (09:56)
[2024-09-20] MEDS ORDERED: VALPROATE SODIUM 500 MG/5 ML VIAL IVPB SCH (10:00)
[2024-09-20] MEDS: TAMSULOSIN HCL 0.4 MG CAP PO SCH (10:03)
[2024-09-20] MEDS: LOSARTAN POTASSIUM 50 MG TABLET PO SCH (10:03)
[2024-09-20] MEDS: PANTOPRAZOLE 40 MG TABLET PO SCH (10:03)
[2024-09-20] MEDS: HYDROCHLOROTHIAZIDE 12.5 MG CAPSULE (FP) PO SCH (10:03)
[2024-09-20 10:57] LABS: BASO % 0.4 % (0-2.0); EOS % 0.7 % (0-4.5); HEMATOCRIT 44.8 % (35.4-49); LYMPH % 22.5 % (8-40); MCH 28.9 pg (25.7-33.7); MCHC 33.5 g/dl (32.0-35.9); MEAN CELL VOLUME 86.3 fl (80-96); MEAN PLT VOLUME 8.6 fl (7.5-11.1); MONO % 7.9 % (3.8-10.2); NEUT % 68.5 % (42.8-82.8); PLATELET COUNT 196 10^3/uL (134-434); RBC 5.19 M/mm3 (4.00-5.60); RDW 14.4 % (11.9-15.9); WHITE BLOOD COUNT 6.3 K/mm3 (4.0-10.0)
[2024-09-20 11:23] LABS: CALCIUM 9.8 mg/dL (8.5-10.1)
[2024-09-20 11:26] LABS: PHOSPHOROUS 2.7 mg/dL (2.5-4.9)
[2024-09-20 11:28] LABS: CREATININE 1.2 mg/dL (0.55-1.3)
[2024-09-20] MEDS ORDERED: ALPRAZolam 0.25 MG TABLET ONE (11:44)
[2024-09-20] MEDS: ALPRAZolam 1 MG TABLET PO PRN (11:55)
[2024-09-20] MEDS ORDERED: INSULIN ASPART SLIDING SCALE (NOVOLOG) 1 VIAL SQ ONE ×3 (11:57→18:01)
[2024-09-20 17:37] VITALS: RESP 16; TEMP 98
[2024-09-20] MEDS ORDERED: CARBIDOPA/LEVODOPA 25/100 TABLET (FP) ONE (17:41)
[2024-09-20 18:48] VITALS: BP 133/75; PULSE 69
[2024-09-20] MEDS ORDERED: ATORVASTATIN CA 10 MG TABLET (FP) PO SCH (22:00)
[2024-09-20] MEDS ORDERED: amLODIPine BESYLATE 5 MG TABLET (FP) PO SCH (22:00)
[2024-09-21] MEDS ORDERED: ASPIRIN 81 MG CHEWABLE TABLETS PO SCH (10:00)
== END 2024-09-20 18:48 | disposition home or self-care (01) ==
LOC: JER 20:20 → JERBED 09-20 01:49
PROVIDERS: ADMIT Internal Medicine; ATTEND Internal Medicine
PROC: 3E033GC Introduction of Other Therapeutic Substance into Peripheral Vein, Percutaneous Approach (ICD-10-PCS; principal; 2024-09-20)
DX: R74.8 Abnormal levels of other serum enzymes (principal); R07.89 Other chest pain; I10 Essential (primary) hypertension; I25.10 Atherosclerotic heart disease of native coronary artery without angina pectoris; E11.69 Type 2 diabetes mellitus with other specified complication; E78.5 Hyperlipidemia, unspecified; K21.9 Gastro-esophageal reflux disease without esophagitis; G20.A1 Parkinson's disease without dyskinesia, without mention of fluctuations
CPT/HCPCS: 0241U-QW; 36415; 71045-TC-FY; 80048; 80053; 82550; 82962; 83735; 84100; 84439; 84443; 84484; 85025; 85610; 85730; 93005; 93010; 93306-TC; 96365; 96372; 96375; 99285-25; G0378; J0131

== ENCOUNTER 2025-01-18 06:33 | Day surgery (SDC) | payer OTHER, BC ==
[2025-01-12 12:25] VITALS: BMI 24.0
[2025-01-18] MEDS ORDERED: MIDAZOLAM HCL 2 MG/2 ML SINGLE DOSE VIAL ONE (08:04)
[2025-01-18 08:52] VITALS: TEMP 97.7
[2025-01-18 09:48] VITALS: BP 130/80; PULSE 56; RESP 16
== END 2025-01-18 09:45 | disposition home or self-care (01) ==
LOC: JASU-ENDO 06:33
PROVIDERS: ATTEND Internal Medicine Gastroenterology
PROC: 0DBL8ZX Excision of Transverse Colon, Via Natural or Artificial Opening Endoscopic, Diagnostic (ICD-10-PCS; 2025-01-18)
PROC: 0DBP8ZX Excision of Rectum, Via Natural or Artificial Opening Endoscopic, Diagnostic (ICD-10-PCS; 2025-01-18)
PROC: 0DB98ZX Excision of Duodenum, Via Natural or Artificial Opening Endoscopic, Diagnostic (ICD-10-PCS; 2025-01-18)
PROC: 0DB78ZX Excision of Stomach, Pylorus, Via Natural or Artificial Opening Endoscopic, Diagnostic (ICD-10-PCS; 2025-01-18)
PROC: 0DB68ZX Excision of Stomach, Via Natural or Artificial Opening Endoscopic, Diagnostic (ICD-10-PCS; 2025-01-18)
PROC: 0DB48ZX Excision of Esophagogastric Junction, Via Natural or Artificial Opening Endoscopic, Diagnostic (ICD-10-PCS; 2025-01-18)
PROC: 0DBK8ZX Excision of Ascending Colon, Via Natural or Artificial Opening Endoscopic, Diagnostic (ICD-10-PCS; principal; 2025-01-18 08:00)
DX: Z12.11 Encounter for screening for malignant neoplasm of colon (principal); D12.2 Benign neoplasm of ascending colon; D12.3 Benign neoplasm of transverse colon; D12.8 Benign neoplasm of rectum; K63.89 Other specified diseases of intestine; K31.7 Polyp of stomach and duodenum; K21.00 Gastro-esophageal reflux disease with esophagitis, without bleeding; K22.2 Esophageal obstruction; K44.9 Diaphragmatic hernia without obstruction or gangrene; K29.50 Unspecified chronic gastritis without bleeding
CPT/HCPCS: 88305-TC; 88342-TC